=== PATIENT | male | born 1980 | race Two or more races ===

== ENCOUNTER → 2019-11-25 | Outpatient (CLI) | payer OTHER ==
[~2019-11-25] MED LIST: None at this Time
[2019-11-25 14:17] LABS: BASOPHILS # (AUTO) 0.03 x10^3/uL (0-0.1); BASOPHILS % (AUTO) 0 % (0-1); EOSINOPHILS # (AUTO) 0.13 x10^3/uL (0-0.4); EOSINOPHILS % (AUTO) 2 % (1-7); LYMPHOCYTES % (AUTO) 38 % (22-44); MD NO; MEAN CORPUSCULAR HEMOGLOBIN 29.2 pg (27.5-34.5); MEAN CORPUSCULAR HGB CONC 33.3 g/dL (33.2-36.2); MEAN CORPUSCULAR VOLUME 87.8 fL (81-97); MEAN PLATELET VOLUME 8.8 fL (7.4-10.4); MONOCYTES # (AUTO) 0.55 x10^3/uL (0.2-0.8); MONOCYTES % (AUTO) 8 % (2-9); NEUTROPHILS # (AUTO) 3.48 x10^3/uL (1.8-6.8); NEUTROPHILS % (AUTO) 51 % (42-75); PLATELET COUNT 221 x10^3/uL (130-400); RED CELL DISTRIBUTION WIDTH 14.3 % (9.4-14.8)
[2019-11-25 14:21] LABS: INTERNATIONAL NORMALIZED RATIO 0.97 (0.93-1.1)
[2019-11-25 14:39] LABS: MICROSCOPIC NOT IND
[2019-11-25 14:46] LABS: ANION GAP 5 mmol/L (5-15); CALCIUM 8.8 mg/dL (8.5-10.1); CHLORIDE 108 mmol/L (98-107); CREATININE 1.12 mg/dL (0.7-1.3)
== END | disposition home or self-care (01) ==
LOC: STAR 13:17
PROVIDERS: ATTEND Urology
DX: Z01.818 Encounter for other preprocedural examination (principal); Z11.59 Encounter for screening for other viral diseases; N20.0 Calculus of kidney
CPT/HCPCS: 36415; 80048; 81003; 85025; 85610; 87086; 87635

== ENCOUNTER 2019-11-30 05:46 | Day surgery (SDC) | payer OTHER ==
[~2019-11-30] VITALS: Ht 180.3 cm; Wt 85.0 kg
[2019-11-30] MEDS ORDERED: LACTATED RINGERS 1,000 ML IV SCH (06:32)
[2019-11-30] MEDS ORDERED: CHLORHEXIDINE 15 ML UDC MM ONE (07:00)
[2019-11-30] MEDS ORDERED: LABETALOL 5MG/ML, 20ML ONE (07:14)
[2019-11-30] MEDS ORDERED: LIDOCAINE 1%, 20ML ONE (07:14)
[2019-11-30] MEDS ORDERED: LIDOCAINE-MPF 2% ,5ML ONE (07:19)
[2019-11-30] MEDS ORDERED: MIDAZOLAM 1 MG/ML, 2ML ONE (07:19)
[2019-11-30] MEDS ORDERED: DEXAMETHASONE 4 MG/ML, 1ML ONE (07:19)
[2019-11-30] MEDS ORDERED: ROCURONIUM 10MG/ML,5ML ONE (07:19)
[2019-11-30] MEDS ORDERED: FENTANYL PF 250 MCG/5ML ONE (07:19)
[2019-11-30] MEDS ORDERED: GLYCOPYRROLATE 0.2MG/1ML, 5ML ONE (07:19)
[2019-11-30] MEDS ORDERED: PROPOFOL 10 MG/ML, 20ML ONE (07:19)
[2019-11-30] MEDS ORDERED: LORazepam 2 MG/ML, 1ML IVPush PRN (07:30)
[2019-11-30] MEDS ORDERED: METOCLOPRAMIDE 5 MG/ML, 2ML IVPush PRN (07:30)
[2019-11-30] MEDS ORDERED: MIDAZOLAM 1 MG/ML, 2ML IV PRN (07:30)
[2019-11-30] MEDS ORDERED: HYDROcodone/APAP 7.5-325MG/15ML UDC PO PRN (07:30)
[2019-11-30] MEDS ORDERED: DIAZEPAM 5 MG/ML, 2ML IVPush PRN (07:30)
[2019-11-30] MEDS ORDERED: hydrALAzine 20 MG/ML, 1ML IV PRN (07:30)
[2019-11-30] MEDS ORDERED: OXYcodone 5 MG/5 ML ORAL.SOL UDC PO PRN (07:30)
[2019-11-30] MEDS ORDERED: KETOROLAC 30 MG/1 ML IVPush PRN (07:30)
[2019-11-30] MEDS ORDERED: METHOCARBAMOL 1,000 MG in DEXTROSE 5% 100 ML IV PRN (07:30)
[2019-11-30] MEDS ORDERED: MEPERIDINE/PF 25MG/0.5ML IVPush PRN (07:30)
[2019-11-30] MEDS ORDERED: HALOPERIDOL 5 MG/ML IV PRN (07:30)
[2019-11-30] MEDS ORDERED: ONDANSETRON 2MG/ML, 2ML IVPush PRN (07:30)
[2019-11-30] MEDS ORDERED: DIPHENHYDRAMINE 50 MG/ML, 1ML IVPush PRN (07:30)
[2019-11-30] MEDS ORDERED: EPHEDRINE 50 MG/ML, 1ML IVPush PRN (07:30)
[2019-11-30] MEDS ORDERED: ALBUTEROL/IPRATROPIUM 2.5MG/0.5MG, 3 ML NPPB PRN (07:30)
[2019-11-30] MEDS ORDERED: HYDROmorphone 1 MG/ML, 1ML INJ IVPush PRN (07:30)
[2019-11-30] MEDS ORDERED: ACETAMINOPHEN 325 MG TABLET PO PRN (07:30)
[2019-11-30] MEDS ORDERED: EPHEDRINE 50 MG/ML, 1ML IM PRN (07:30)
[2019-11-30] MEDS ORDERED: LABETALOL 5MG/ML, 20ML IV PRN (07:30)
[2019-11-30] MEDS ORDERED: OPIUM/BELLADONNA SUPP.RECT 16.2-60 MG ONE (08:21)
[2019-11-30] MEDS ORDERED: ONDANSETRON 2MG/ML, 2ML ONE (08:40)
[2019-11-30] MEDS ORDERED: CEFAZOLIN 1,000 MG ONE (08:40)
[2019-11-30] MEDS ORDERED: MEPERIDINE/PF 25MG/ML,1ML ONE (08:56)
[2019-11-30] MEDS ORDERED: OMNIPAQUE 350 MG/ML, 50 ML BOTTLE ONE (09:00)
[2019-11-30] MEDS ORDERED: ACETAMINOPHEN 650 MG/20.3 ML UDC ONE (09:51)
[2019-11-30] MEDS ORDERED: OXYcodone 5 MG/5 ML ORAL.SOL UDC ONE (09:52)
[2019-11-30] MEDS ORDERED: FENTANYL PF 100 MCG/2ML ONE (09:52)
[2019-11-30] MEDS: FENTANYL PF 100 MCG/2ML IV PRN ×2 (09:55→10:03)
[2019-11-30] MEDS ORDERED: PHENAZOPYRIDINE 200 MG TABLET ONE (11:18)
== END 2019-11-30 12:30 | disposition home or self-care (01) ==
LOC: OUT 05:46
PROVIDERS: ATTEND Urology
DX: N20.0 Calculus of kidney (principal); N40.0 Benign prostatic hyperplasia without lower urinary tract symptoms; Z79.899 Other long term (current) drug therapy; Z87.442 Personal history of urinary calculi
CPT/HCPCS: 52356; 74420; 82360; 88300; C1758; C1769; C2617; J0690; J1100; J2175; J2250; J2405; J2704; J3010; J7120; Q9967